=== PATIENT | male | born 1990 | race Caucasian/White ===

== ENCOUNTER 2020-10-13 10:26 | Emergency (ER) | payer SELFPAY ==
[~2020-10-13] VITALS: Ht 182.9 cm; Wt 95.2 kg
[2020-10-13] MEDS ORDERED: EPIPEN 2-P0.3 MG/0.3 IM (12:06)
== END 2020-10-13 12:44 | disposition home or self-care (01) ==
LOC: ED 10:26
DX: T63.441A Toxic effect of venom of bees, accidental (unintentional), initial encounter (principal); Z88.0 Allergy status to penicillin; Z91.030 Bee allergy status; Z91.018 Allergy to other foods
CPT/HCPCS: 99283; J7512